=== PATIENT | female | born 1985 | race Caucasian/White ===

== ENCOUNTER 2022-05-02 09:59 | Outpatient (CLI) | payer BC | END 2022-05-02 10:00 | disposition home or self-care (01) | LOC: SCSMRI 09:59 | PROVIDERS: ATTEND Family Medicine | DX: S33.0XXA Traumatic rupture of lumbar intervertebral disc, initial encounter (principal); M51.27 Other intervertebral disc displacement, lumbosacral region | CPT/HCPCS: 72148 ==

== ENCOUNTER 2022-05-16 07:43 | Day surgery (SDC) | payer BC ==
[2022-05-15 12:08] VITALS: BMI 26.6
[2022-05-16 08:36] LABS: BHCG - Serum Negative (NEGATIVE); Pregs Control Background? CLEAR/WHITE (CLR/WHITE); Pregs Control Bar Appear? YES (CONTROL BAR)
[2022-05-16] MEDS ORDERED: Bupivacaine HCl 0.5%/Epinephrine 1:200,000/PF 30 ml Vial ONE (10:28)
[2022-05-16] MEDS ORDERED: fentaNYL PF 100 MCG/2 ML SYRINGE ONE (10:29)
[2022-05-16] MEDS ORDERED: SUGAMMADEX SODIUM 200 MG/2 ML VIAL ONE (10:30)
[2022-05-16] MEDS ORDERED: Midazolam HCl 2 mg/2 ml Vial ONE (10:41)
[2022-05-16] MEDS ORDERED: CEFAZOLIN 2 GM VIAL ONE ×2 (10:45→13:04)
[2022-05-16] MEDS ORDERED: Sodium Chloride 0.9% 100 ML ONE ×2 (10:45→13:04)
[2022-05-16] MEDS ORDERED: NEOSTIGMINE 3 MG/3 ML SYR 3 MG/3 ML SYRINGE ONE (11:08)
[2022-05-16] MEDS ORDERED: Ondansetron PF 4 MG/2 ML Vial ONE (11:08)
[2022-05-16] MEDS ORDERED: PROPOFOL 200 MG/20 ML VIAL ONE (11:08)
[2022-05-16] MEDS ORDERED: Rocuronium Bromide 10 MG/ML (10ML VIAL) ONE (11:08)
[2022-05-16] MEDS ORDERED: Ketorolac Tromethamine 30 MG/ML VIAL ONE ×2 (11:08)
[2022-05-16] MEDS ORDERED: Glycopyrrolate 0.2 MG/ML 5 ML SYRINGE ONE (11:08)
[2022-05-16] MEDS ORDERED: Meperidine HCl/PF 25 MG/ML VIAL ONE (12:16)
[2022-05-16] MEDS ORDERED: FENTANYL 50 MCG/ML 1 ML VIAL ONE ×2 (12:17→12:39)
[2022-05-16] MEDS ORDERED: CEFAZOLIN 1 GM VIAL ONE (13:03)
== END 2022-05-16 14:15 | disposition home or self-care (01) ==
LOC: SDC 07:43
PROVIDERS: ATTEND Neurological Surgery
PROC: 01NR0ZZ Release Sacral Nerve, Open Approach (ICD-10-PCS; principal; 2022-05-16)
PROC: 0SB20ZZ Excision of Lumbar Vertebral Disc, Open Approach (ICD-10-PCS; principal; 2022-05-16)
DX: M51.16 Intervertebral disc disorders with radiculopathy, lumbar region (principal); G89.29 Other chronic pain; M19.90 Unspecified osteoarthritis, unspecified site; I10 Essential (primary) hypertension; F17.200 Nicotine dependence, unspecified, uncomplicated; Z79.899 Other long term (current) drug therapy; Z88.8 Allergy status to other drugs, medicaments and biological substances
CPT/HCPCS: 84703; 93005; 93010; J0690; J1885; J2175; J2250; J2405; J2704; J3010; J3490

== ENCOUNTER 2022-09-24 09:39 | Outpatient (CLI) | payer BC ==
[~2022-09-24 09:39] MED LIST: Magnevist 469MG/ML 20 ML VIAL ONE
== END 2022-09-24 09:40 | disposition home or self-care (01) ==
LOC: TBSIIMAG 09:39
PROVIDERS: ATTEND Student in an Organized Health Care Education/Training Program
DX: M51.26 Other intervertebral disc displacement, lumbar region (principal); Z98.890 Other specified postprocedural states; M51.36 Other intervertebral disc degeneration, lumbar region
CPT/HCPCS: 72158

== ENCOUNTER 2023-02-24 10:21 | Outpatient (CLI) | payer BC ==
[2023-02-24 11:33] LABS: BHCG - Serum Negative (NEGATIVE); Pregs Control Background? CLEAR/WHITE (CLR/WHITE); Pregs Control Bar Appear? YES (CONTROL BAR)
== END 2023-02-24 10:22 | disposition home or self-care (01) ==
LOC: LABBT 10:21
PROVIDERS: ATTEND Neurological Surgery
DX: Z01.818 Encounter for other preprocedural examination (principal); M54.16 Radiculopathy, lumbar region
CPT/HCPCS: 84703; 93005; 93010

== ENCOUNTER 2023-02-25 07:22 | Day surgery (SDC) | payer BC ==
[2023-02-24 10:48] VITALS: BMI 25.8
[2023-02-25] MEDS ORDERED: EPINEPHrine 1 MG/ML AMP ONE (07:52)
[2023-02-25] MEDS ORDERED: Bupivacaine PF 0.5% 30 ML VIAL ONE (07:52)
[2023-02-25] MEDS ORDERED: Acetaminophen 500 MG TAB ONE (07:57)
[2023-02-25] MEDS ORDERED: Thrombin 5000 UNITS/5 ML VIAL ONE (08:03)
[2023-02-25] MEDS ORDERED: fentaNYL PF 100 MCG/2 ML SYRINGE ONE (08:31)
[2023-02-25] MEDS ORDERED: Dexmedetomidine 200 MCG/2 ML VIAL ONE (08:32)
[2023-02-25] MEDS ORDERED: CEFAZOLIN 2 GM VIAL ONE ×2 (08:35→12:26)
[2023-02-25] MEDS ORDERED: Sodium Chloride 0.9% 100 ML ONE ×2 (08:35→12:26)
[2023-02-25] MEDS ORDERED: Lidocaine 1% PF 5 ML VIAL ONE (08:50)
[2023-02-25] MEDS ORDERED: PROPOFOL 200 MG/20 ML VIAL ONE (08:50)
[2023-02-25] MEDS ORDERED: Dexamethasone 20 MG/5 ML VIAL ONE (08:50)
[2023-02-25] MEDS ORDERED: ePHEDrine Sulfate 50 MG/10 ML VIAL ONE (08:50)
[2023-02-25] MEDS ORDERED: Albuterol HFA (OR) 200 PUFF INH ONE (08:50)
[2023-02-25] MEDS ORDERED: Ondansetron PF 4 MG/2 ML Vial ONE (08:50)
[2023-02-25] MEDS ORDERED: Rocuronium Bromide 10 MG/ML (10ML VIAL) ONE (08:50)
[2023-02-25] MEDS ORDERED: SUGAMMADEX SODIUM 200 MG/2 ML VIAL ONE (09:44)
[2023-02-25] MEDS ORDERED: fentaNYL 50 mcg/mL 1 mL Vial ONE ×3 (10:14→10:53)
[2023-02-25] MEDS ORDERED: Promethazine HCl 25 MG/ML VIAL ONE (10:34)
[2023-02-25] MEDS ORDERED: HYDROmorphone 0.5 MG/0.5 ML SYRINGE ONE (10:59)
[2023-02-25] MEDS ORDERED: hydrALAZINE 20 MG/ML VIAL ONE (11:10)
[2023-02-25] MEDS ORDERED: diphenhydrAMINE 50 MG/ML VIAL ONE (11:22)
[2023-02-25] MEDS ORDERED: Acetaminophen/Codeine 30-300mg Tablet ONE (12:24)
== END 2023-02-25 13:10 | disposition home or self-care (01) ==
LOC: SDC 07:22
PROVIDERS: ATTEND Neurological Surgery
PROC: 01NB0ZZ Release Lumbar Nerve, Open Approach (ICD-10-PCS; principal; 2023-02-25)
DX: M54.16 Radiculopathy, lumbar region (principal); D64.9 Anemia, unspecified; F41.9 Anxiety disorder, unspecified; M19.90 Unspecified osteoarthritis, unspecified site; I10 Essential (primary) hypertension; Z98.890 Other specified postprocedural states; F17.200 Nicotine dependence, unspecified, uncomplicated; Z79.899 Other long term (current) drug therapy
CPT/HCPCS: J0171; J0360; J1100; J1170; J1200; J2405; J2550; J2704; J3010; J3490; S0020